=== PATIENT | male | born 1960 | race Caucasian/White ===

== ENCOUNTER 2020-07-29 17:04 | Emergency (ER) | payer OTHER ==
[2020-07-29 17:24] VITALS: BP 123/76; PULSE 69; TEMP 98.4; BMI 23.8
[2020-07-29] MEDS ORDERED: ACETAMINOPHEN 500 MG TABLET (FP) PO ONE (17:37)
[2020-07-29] MEDS ORDERED: ACETAMINOPHEN 500 MG TABLET (FP) ONE (17:41)
== END 2020-07-29 19:04 | disposition home or self-care (01) ==
LOC: JER 17:04
DX: M62.838 Other muscle spasm (principal)
CPT/HCPCS: 93971-TC; 99284-25